=== PATIENT | female | born 1965 | race Caucasian/White ===

== ENCOUNTER 2017-01-05 10:51 | Emergency (ER) | payer BC ==
[2017-01-05] MEDS ORDERED: Ondansetron INJ* 2 MG/ML VIAL IV ONE (13:30)
[2017-01-05] MEDS ORDERED: Ketorolac INJ* 30 MG/ML 1 ML VIAL IV ONE (13:30)
[2017-01-05] MEDS ORDERED: NS 0.9% 1000 ML* 1,000 ML IV ONE (13:30)
[2017-01-05 13:50] LABS: Hematocrit 40 % (35-47); Hemoglobin 13.2 g/dl (12.0-16.0); Mean Corpuscular HGB Conc 33 g/dl (31-36); Mean Corpuscular Hemoglobin 31 pg (27-31); Mean Corpuscular Volume 92 fL (80-97); Mean Platelet Volume 8 um3 (7.4-10.4); Red Blood Count 4.35 10^6/ul (4.0-5.4); Red Cell Distribution Width 14 % (10.5-15); Urine Bilirubin Negative (Negative); Urine Glucose Negative (Negative); Urine Nitrite Negative (Negative); White Blood Count 5.5 10^3/ul (3.5-10.8)
[2017-01-05 14:09] LABS: ALT 13 U/L (7-52); AST 19 U/L (13-39); Albumin 3.7 g/dL (3.2-5.2); Alkaline Phosphatase 57 U/L (34-104); Anion Gap 4 mmol/L (2-11); BUN/Creatinine Ratio 15.3 (8-20); Blood Urea Nitrogen 13 mg/dL (6-24); C Reactive Protein < 1.00 mg/L (< 5.00); CO2 Carbon Dioxide 29 mmol/L (22-32); Calcium 9.1 mg/dL (8.6-10.3); Chloride 106 mmol/L (101-111); Creatine Kinase 78 U/L (10-223); EGFR African American 90.7 (>60); EGFR Non-African American 70.5 (>60); Globulin 2.6 g/dL (2-4); Glucose 87 mg/dL (70-100); Lipase 35 U/L (11.0-82.0); Sodium 139 mmol/L (133-145); Total Protein 6.3 g/dL (6.4-8.9)
[2017-01-05] MEDS ORDERED: HYDROmorphone* 1 MG/ML 1 ML SYR IV ONE (14:43)
[2017-01-05] MEDS ORDERED: Iohexol 300* (CONTRAST) 10 ML SDV IV ONE (14:46)
--- NOTE | 2017-01-05 15:59 | RAD ---
INDICATION: RIGHT abdominal pain. No bowel movement for 3 days. Post cholecystectomy. Post Drea-en-Y gastric bypass. COMPARISON: October 21, 2016 pelvic ultrasound, August 24, 2016 abdomen ultrasound, January 17, [address] July 23, 2016 MRCP. TECHNIQUE: Multidetector CT images were obtained from the lung bases to the ischial tuberosities with 105 mL Omnipaque 300 IV and oral contrast. Multiplanar reformation. REPORT: Unremarkable visualized inferior thorax. Post cholecystectomy. Negative for biliary dilatation. Unremarkable liver. Upper normal diameter of the pancreatic duct. No focal pancreatic lesion or conspicuous stones along the course of the common bile duct. Negative for peripancreatic inflammatory change. Unremarkable spleen. Postsurgical change of Drea-en-Y gastric bypass without suspicious finding. Negative for CT abnormality of the small bowel loops or appendix visualized posterior to the cecum. Mild colonic diverticulosis without findings of diverticulitis. Negative for ascites, free air, or significant hernias. Normal RIGHT adrenal gland. 1.6 x 1.7 cm relative low density LEFT adrenal nodule without gross change compared with the 2009 exam consistent with a benign adrenal adenoma. Unremarkable kidneys with symmetric nephrograms and pyelograms. Unremarkable ureters and urinary bladder. Unremarkable anteverted uterus with IUD in place. Unremarkable RIGHT adnexal region. 2.8 x 3.9 x 3.4 cm mildly denser than water LEFT ovarian lesion corresponding with complex cyst on October 21, 2016 ultrasound with mild interval decrease in size strongly favoring benign etiology. Negative for lymphadenopathy. Normal diameter abdominal aorta and iliac arteries. Physiologic distention of the IVC. Negative for suspicious focal osseous lesions. IMPRESSION: 1. Post cholecystectomy. Negative for biliary dilatation. 2. Postsurgical change of Drea-en-Y gastric bypass without suspicious finding of the alimentary tract. Normal appendix documented. Mild colonic diverticulosis without findings of diverticulitis. Only moderate volume of stool within the colon. 3. Benign LEFT adrenal adenoma. 4. 3.9 cm maximum dimension mildly denser than water LEFT ovarian lesion corresponding with complex cyst on October 21, 2016 ultrasound with mild interval decrease in size strongly favoring benign etiology. Reassessment with ultrasound in approximate 1 months time suggested. 5. Negative for lymphadenopathy.
[2017-01-05] MEDS ORDERED: Magnesium CITRATE* 300 ML BTL PO ONE (16:51)
--- NOTE | 2017-01-05 17:02 | ED ---
Ten Garcia Auryana, scribed for Charlie Cabral MD on 01/05/17 at 1427 . Abdominal Pain/Female - HPI Summary HPI Summary: 51 year old female presents with worsening right sided abdominal pain. She reports that she has had right sided pain for the last 3 months. Initially, the pain is located in the right central abdomen but now is also in the RLQ. The pain is characterized as a constant dull pain but occasionally becomes a "spastic" pain. Currently her pain is a 6/10. She also has nausea, decreased appetite, constipation (if she has a BM, typically small and soft), and chills- reports normal per patient. The patient does not believe that the pain is related to any food intake, medications, or activities - states Rx for Tramadol but has not used pain medication. She denies any fevers, problems with urination , vaginal bleeding/discharge, lower extremity edema or pain. She is not currently on any blood thinners - reports blood thinner previously s/p foot surgery due to DVT. Her last BM was a few days ago - typically has BM twice a day. She recently had a rectal physiology exam which was normal in structure. PMHx is significant for gastric bypass (hematoma s/p surgery), cholecystectomy, Caesarean section x2, tubal ligation, hemorrhagic ovarian cysts (left), and dysmenorrhea (IUD placement). No history of appendectomy, hysterectomy, or bowel obstruction. - History of Current Complaint Chief Complaint: EDAbdPain Stated Complaint: ABD PAIN/NAUSEA Time Seen by Provider: 01/05/17 13:12 Hx Obtained From: Patient Hx Last Menstrual Period: IUD ?: No Onset/Duration: Gradual Onset, Lasting Weeks - for the last 3 months, Still Present Timing: Constant Severity Initially: Moderate Severity Currently: Moderate Pain Intensity: 7 - reprots 6/10 Pain Scale Used: 0-10 Numeric Location: Discrete At: RLQ, Other - right central abdomen Radiates: No Character: Dull, Other: - can become "spastic" Aggravating Factor(s): Nothing Associated Signs and Symptoms: Positive: Constipation, Decreased Appetite, Nausea, Other: - chills - nml per patient Simlar Episode/Dx as:: yes - for the last 3 months Allergies/Adverse Reactions: Allergies Allergy/AdvReac Type Severity Reaction Status Date / Time Heparin Allergy INCREASED Verified 01/05/17 11:53 BLEEDING Morphine Allergy Itching Verified 01/05/17 11:53 Oxycodone [From Percocet] Allergy FACIAL Verified 01/05/17 11:53 ITCHING Penicillins Allergy Hives Verified 01/05/17 11:53 Sulfa Drugs Allergy Hives Verified 01/05/17 11:53 PMH/Surg Hx/FS Hx/Imm Hx Endocrine/Hematology History: Reports: Hx Anemia - FERRITIN LOW Denies: Hx Diabetes Cardiovascular History: Denies: Hx Hypotension, Hx Hypertension, Hx Pacemaker/ICD Respiratory History: Reports: Hx Sleep Apnea GI History: Reports: Hx Gall Bladder Disease, Hx Gastroesophageal Reflux Disease , Other GI Disorders - JOSE N Y GASTRIC BYPASS History: Denies: Hx Renal Disease Musculoskeletal History: Reports: Hx Bursitis - LEFT HIP, Other Musculoskeletal History - HX OF RIGHT BICEP TENDON TEAR Sensory History: Reports: Hx Contacts or Glasses - GLASSES Denies: Hx Hearing Aid Opthamlomology History: Reports: Hx Contacts or Glasses - GLASSES Psychiatric History: Reports: Hx Anxiety, Hx Depression Denies: Hx Panic Disorder - Surgical History Surgery Procedure, Year, and Place: 1988 TONSILLECTOMY, [facility]. 1991 CSECTION, [facility]. 1999 CSECTION WITH BILATERAL TUBAL LIGATION, [facility]. 2008 LAPAROSCOPIC CHOLECYSTECTOMY, [facility] [place]. 2011 RIGHT DISTAL BICEP TENDON REPAIR, [facility] [place]. 2012 RIGHT WRIST DEQUERVAINS TENDON REPAIR, [facility] [place]. 01/2015 LAPAROSCOPIC JOSE EN Y GASTRIC BYPASS, [facility] [place]. 01/2015 DIAGNOSTIC LAPAROSCOPIC EVACUATION ON INTRAPERTIONEAL BLOOD AND DRAIN PLACEMENT, [facility] [place]. 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 Denies: Hx Clostridium Difficile, Hx Hepatitis, Hx Human Immunodeficiency Virus (HIV), Hx Shingles, Hx Tuberculosis, Hx Known/Suspected VRE, Hx Known/ Suspected VRSA, History Other Infectious Disease, Traveled Outside the [place] in Last 30 Days - Family History Known Family History: Positive: Other - lung cancer, breast cancer, liver disease - Social History Occupation: Employed Full-time Alcohol Use: Rare Substance Use Type: Reports: Prescribed Smoking Status (MU): Former Smoker Type: Cigarettes Amount Used/How Often: 1/2 PPD FOR ABOUT 10 YEARS Length of Time of Smoking/Using Tobacco: 10 YEARS Have You Smoked in the Last Year: No Review of Systems Positive: Chills - reports NML . Negative: Fever Eyes: Negative ENT: Negative Cardiovascular: Negative Respiratory: Negative Positive: Abdominal Pain, Nausea, Other - decreased appetite and constipation Genitourinary: Negative Positive: no symptoms reported. Negative: dysuria Musculoskeletal: Negative Negative: Edema Skin: Negative Neurological: Negative Psychological: Normal All Other Systems Reviewed And Are Negative: Yes Physical Exam - Summary Physical Exam Summary: General: well-appearing, mild pain distress Skin: warm, color reflects adequate perfusion, dry Head: normal Eyes: EOMI, ARMIDA ENT: normal Neck: supple, nontender Respiratory: CTA, breath sounds present Cardiovascular: RRR Abdomen: soft, tenderness in the RLQ, right central abdomen, and the epigastric area Bowel: present Musculoskeletal: normal, strength/ROM intact Neurological: normal, sensory/motor intact, A&O x3 Psychological: affect/mood appropriate Triage Information Reviewed: Yes Vital Signs On Initial Exam: Initial Vitals Temp Pulse Resp BP Pulse Ox 97.6 F 57 20 127/85 100 01/05/17 10:56 01/05/17 10:56 01/05/17 10:56 01/05/17 10:56 01/05/17 10:56 Vital Signs Reviewed: Yes - [place] Coma Scale Coma Scale Total: 15 Diagnostics - Vital Signs Vital Signs Temp Pulse Resp BP Pulse Ox 01/05/17 12:30 56 13 104/73 99 01/05/17 12:00 55 17 134/74 99 01/05/17 11:50 54 100 01/05/17 11:49 134/76 01/05/17 11:48 97.6 F 56 18 134/76 100 01/05/17 10:56 97.6 F 57 20 127/85 100 - Laboratory Lab Results: Lab Results 01/05/17 01/05/17 01/05/17 Range/Units 13:35 13:35 13:35 WBC 5.5 (3.5-10.8) 10^3/ul RBC 4.35 (4.0-5.4) 10^6/ul Hgb 13.2 (12.0-16.0) g/dl Hct 40 (35-47) % MCV 92 (80-97) fL MCH 31 (27-31) pg MCHC 33 (31-36) g/dl RDW 14 (10.5-15) % Plt Count 249 (150-450) 10^3/ul MPV 8 (7.4-10.4) um3 Neut % (Auto) 48.4 (38-83) % Lymph % (Auto) 36.8 (25-47) % [place] % (Auto) 8.8 (1-9) % Eos % (Auto) 3.6 (0-6) % Baso % (Auto) 2.4 H (0-2) % Absolute Neuts (auto) 2.7 (1.5-7.7) 10^3/ul Absolute Lymphs (auto) 2.0 (1.0-4.8) 10^3/ul Absolute Monos (auto) 0.5 (0-0.8) 10^3/ul Absolute Eos (auto) 0.2 (0-0.6) 10^3/ul Absolute Basos (auto) 0.1 (0-0.2) 10^3/ul Absolute Nucleated RBC 0 10^3/ul Nucleated RBC % 0 INR (Anticoag Therapy) 0.91 (0.89-1.11) APTT 31.6 (26.0-36.3) seconds Sodium (133-145) mmol/L Potassium (3.5-5.0) mmol/L Chloride (101-111) mmol/L Carbon Dioxide (22-32) mmol/L Anion Gap (2-11) mmol/L BUN (6-24) mg/dL Creatinine (0.51-0.95) mg/dL Est GFR ( Amer) (>60) Est GFR (Non-Af Amer) (>60) BUN/Creatinine Ratio (8-20) Glucose (70-100) mg/dL Lactic Acid (0.5-2.0) mmol/L Calcium (8.6-10.3) mg/dL Total Bilirubin (0.2-1.0) mg/dL AST (13-39) U/L ALT (7-52) U/L Alkaline Phosphatase (34-104) U/L Total Creatine Kinase (10-223) U/L C-Reactive Protein (< 5.00) mg/L Total Protein (6.4-8.9) g/dL Albumin (3.2-5.2) g/dL Globulin (2-4) g/dL Albumin/Globulin Ratio (1-3) Lipase (11.0-82.0) U/L Urine Color Straw Urine Appearance Clear Urine pH 7.0 (5-9) Ur Specific [place] 1.004 L (1.010-1.030) Urine Protein Negative (Negative) Urine Ketones Negative (Negative) Urine Blood Negative (Negative) Urine Nitrate Negative (Negative) Urine Bilirubin Negative (Negative) Urine Urobilinogen Negative (Negative) Ur Leukocyte Esterase Negative (Negative) Urine Glucose Negative (Negative) 01/05/17 01/05/17 Range/Units 13:35 13:35 WBC (3.5-10.8) 10^3/ul RBC (4.0-5.4) 10^6/ul Hgb (12.0-16.0) g/dl Hct (35-47) % MCV (80-97) fL MCH (27-31) pg MCHC (31-36) g/dl RDW (10.5-15) % Plt Count (150-450) 10^3/ul MPV (7.4-10.4) um3 Neut % (Auto) (38-83) % Lymph % (Auto) (25-47) % [place] % (Auto) (1-9) % Eos % (Auto) (0-6) % Baso % (Auto) (0-2) % Absolute Neuts (auto) (1.5-7.7) 10^3/ul Absolute Lymphs (auto) (1.0-4.8) 10^3/ul Absolute Monos (auto) (0-0.8) 10^3/ul Absolute Eos (auto) (0-0.6) 10^3/ul Absolute Basos (auto) (0-0.2) 10^3/ul Absolute Nucleated RBC 10^3/ul Nucleated RBC % INR (Anticoag Therapy) (0.89-1.11) APTT (26.0-36.3) seconds Sodium 139 (133-145) mmol/L Potassium 4.0 (3.5-5.0) mmol/L Chloride 106 (101-111) mmol/L Carbon Dioxide 29 (22-32) mmol/L Anion Gap 4 (2-11) mmol/L BUN 13 (6-24) mg/dL Creatinine 0.85 (0.51-0.95) mg/dL Est GFR ( Amer) 90.7 (>60) Est GFR (Non-Af Amer) 70.5 (>60) BUN/Creatinine Ratio 15.3 (8-20) Glucose 87 (70-100) mg/dL Lactic Acid 0.5 (0.5-2.0) mmol/L Calcium 9.1 (8.6-10.3) mg/dL Total Bilirubin 0.50 (0.2-1.0) mg/dL AST 19 (13-39) U/L ALT 13 (7-52) U/L Alkaline Phosphatase 57 (34-104) U/L Total Creatine Kinase 78 (10-223) U/L C-Reactive Protein < 1.00 (< 5.00) mg/L Total Protein 6.3 L (6.4-8.9) g/dL Albumin 3.7 (3.2-5.2) g/dL Globulin 2.6 (2-4) g/dL Albumin/Globulin Ratio 1.4 (1-3) Lipase 35 (11.0-82.0) U/L Urine Color Urine Appearance Urine pH (5-9) Ur Specific [place] (1.010-1.030) Urine Protein (Negative) Urine Ketones (Negative) Urine Blood (Negative) Urine Nitrate (Negative) Urine Bilirubin (Negative) Urine Urobilinogen (Negative) Ur Leukocyte Esterase (Negative) Urine Glucose (Negative) Result Diagrams: 01/05/17 13:35 01/05/17 13:35 Lab Statement: Any lab studies that have been ordered have been reviewed, and results considered in the medical decision making process. - CT ABD/PEL CT Interpretation: Positive (See Comments) - IMPRESSION: 1. Post cholecystectomy. Negative for biliary dilatation. 2. Postsurgical change of Jose -en-Y gastric bypass without suspicious finding of the alimentary tract. Normal appendix documented. Mild colonic diverticulosis without findings of diverticulitis. Only moderate volume of stool within the colon. 3. Benign LEFT adrenal adenoma. 4. 3.9 cm maximum dimension mildly denser than water LEFT ovarian lesion corresponding with complex cyst on October 21, 2016 ultrasound with mild interval decrease in size strongly favoring benign etiology. Reassessment with ultrasound in approximate 1 months time suggested. 5. Negative for lymphadenopathy. CT Interpretation Completed By: Radiologist Abdominal Pain Fem Course/Dx - Course Course Of Treatment: NO CRITICAL CARE TIME. DISCUSSED RESULTS WITH PATIENT. DISCUSSED ADMISSION FOR PAIN CONTROL VERSES OUT PATIENT F/U. PATIENT, AT THIS TIME, PREFERS OUT PATIENT F/U. DISCHARGE HOME WITH [facility]. RETURN IF WORSE OR NO IMPROVEMENT. - Diagnoses Provider Diagnoses: Abdominal pain, Constipation Discharge - Discharge Plan Condition: Stable Disposition: HOME Patient Education Materials: Constipation (ED), Abdominal Pain (ED) Referrals: Neris Clemente NP [Primary Care Provider] - Additional Instructions: FOLLOW UP WITH YOUR DOCTOR. RETURN TO THE EMERGENCY DEPARTMENT FOR ANY WORSENING OF YOUR CONDITION; PAIN, FEVER, VOMITING, YOU FEEL ILL OR QUESTIONS OR CONCERNS. The documentation as recorded by the Ten chandler Auryana accurately reflects the service I personally performed and the decisions made by me, Charlie Cabral MD.
[2017-01-05 17:13] VITALS: BP 124/72
== END 2017-01-05 17:17 | disposition home or self-care (01) ==
LOC: ED 10:51
DX: R10.31 Right lower quadrant pain (principal); K59.00 Constipation, unspecified; Z88.5 Allergy status to narcotic agent; Z88.2 Allergy status to sulfonamides; Z88.0 Allergy status to penicillin; G47.30 Sleep apnea, unspecified; Z87.891 Personal history of nicotine dependence
CPT/HCPCS: 36415; 74177; 80053; 81003; 82550; 83605; 83690; 85025; 85610; 85730; 86140; 96360; 96374; 96375; 99283; A9270-GY; J1170; J1885; J2405; Q9967

== ENCOUNTER 2018-11-21 08:55 | Emergency (ER) | payer BC ==
[2018-11-21] MEDS ORDERED: HYDROcodone/ACETAMIN 5-325 MG* 1 TAB PO ONE (09:43)
[2018-11-21] MEDS ORDERED: Ketorolac INJ* 60 MG/2 ML VIAL IM ONE (09:45)
[2018-11-21] MEDS ORDERED: predniSONE TAB* 50 MG PO SCH (10:00)
--- NOTE | 2018-11-21 10:27 | ED ---
Lower Extremity - HPI Summary HPI Summary: Patient is a 52yo F presenting to the ED with pain to the area of shingles to the R lower extremity of the R upper leg/thigh. Patient endoress 10/10 pain and is currently on gabapentin and tramadol through her PCP. She is here for uncontrolled pain. Denies taking any steroids. She states she is having pain to this area only and denies other symptoms. She is tearful on exam. - History of Current Complaint Chief Complaint: EDRashSkinAbscess Stated Complaint: SHINGLE ALOT OF PAIN PER PT Time Seen by Provider: 11/21/18 09:01 Hx Obtained From: Patient Hx Last Menstrual Period: IUD Onset of Pain: Hours Onset/Duration: Hours Severity Initially: Severe Severity Currently: Severe Pain Intensity: 10 Timing: Constant Location: Is Discrete @ - right upper leg - r lateral side Character Of Pain: Aching Associated Signs And Symptoms: Negative: Swelling, Redness, Bruising, Fever, Weakness Aggravating Factor(s): Ambulation Able to Bear Weight: No - Risk Factors Gout Risk Factors: Negative DVT Risk Factors: Negative Septic Arthritis Risk Factor: Negative - Allergies/Home Medications Allergies/Adverse Reactions: Allergies Allergy/AdvReac Type Severity Reaction Status Date / Time heparin Allergy SEVERE Verified 11/21/18 10:24 MENSTRAL BLEEDING hops Allergy SOB/STUFFIN Verified 11/21/18 08:58 ESS oxycodone [From Percocet] Allergy FACIAL Verified 11/21/18 08:58 ITCHING Penicillins Allergy Hives Verified 11/21/18 08:58 rivaroxaban [From Xarelto] Allergy SEVERE Verified 11/21/18 08:58 UTERINE BLEEDING Sulfa (Sulfonamide Allergy Hives Verified 11/21/18 08:58 Antibiotics) morphine AdvReac Itching Verified 11/21/18 08:58 Home Medications: Home Medications Gabapentin 300 mg PO DAILY 11/21/18 [History Confirmed 11/21/18] Gabapentin CAP(*) [Neurontin 100 mg CAP(*)] 100 mg PO DAILY 11/21/18 [History Confirmed 11/21/18] Multivitamin [Once Daily] 1 tab PO DAILY 11/21/18 [History Confirmed 11/21/18] Valacyclovir HCl [Valacyclovir] 500 mg PO TID 11/21/18 [History Confirmed ] PMH/Surg Hx/FS Hx/Imm Hx Previously Healthy: Yes Endocrine/Hematology History: Reports: Hx Anemia - FERRITIN LOW Denies: Hx Diabetes Cardiovascular History: Denies: Hx Hypotension, Hx Hypertension, Hx Pacemaker/ICD Respiratory History: Reports: Hx Sleep Apnea GI History: Reports: Hx Gall Bladder Disease, Hx Gastroesophageal Reflux Disease , Other GI Disorders - JOSE N Y GASTRIC BYPASS History: Denies: Hx Renal Disease Musculoskeletal History: Reports: Hx Bursitis - LEFT HIP, Other Musculoskeletal History - HX OF RIGHT BICEP TENDON TEAR; left rotator cuff tear Denies: Hx Rheumatoid Arthritis, Hx Osteoporosis Sensory History: Reports: Hx Contacts or Glasses - GLASSES Denies: Hx Hearing Aid Opthamlomology History: Reports: Hx Contacts or Glasses - GLASSES Psychiatric History: Reports: Hx Anxiety, Hx Depression Denies: Hx Panic Disorder - Cancer History Hx Chemotherapy: No Hx Radiation Therapy: No - Surgical History Surgery Procedure, Year, and Place: 1987 TONSILLECTOMY, [facility]. 1991 CSECTION, [facility]. 1999 CSECTION WITH BILATERAL TUBAL LIGATION, [facility]. 2008 LAPAROSCOPIC CHOLECYSTECTOMY, [facility] [place]. 2011 RIGHT DISTAL BICEP TENDON REPAIR, [facility] [place]. 2012 RIGHT WRIST DEQUERVAINS TENDON REPAIR, [facility] [place]. 01/2015 LAPAROSCOPIC JOSE EN Y GASTRIC BYPASS, [facility] [place]. 01/2015 DIAGNOSTIC LAPAROSCOPIC EVACUATION ON INTRAPERTIONEAL BLOOD AND DRAIN PLACEMENT, [facility] [place]. 10/2015 LEFT FOOT 2ND-4TH-5TH TOE ARTHROPLASTY. April 2017 - left shoulder rotator cuff repair. 06/22/18 - Lt SHOULDER - SUPERASPINATUS/INFRASPINATUS REPAIR-DECOMPRESSION Hx Anesthesia Reactions: No - Immunization History Hx Pertussis Vaccination: No Immunizations Up to Date: Yes Infectious Disease History: No Infectious Disease History: Reports: Hx of Known/Suspected MRSA - pos but not active Denies: Hx Clostridium Difficile, Hx Hepatitis, Hx Human Immunodeficiency Virus (HIV), Hx Shingles, Hx Tuberculosis, Hx Known/Suspected VRE, Hx Known/ Suspected VRSA, History Other Infectious Disease, Traveled Outside the [place] in Last 30 Days - Family History Known Family History: Positive: Other - lung cancer, breast cancer, liver disease - Social History Occupation: Employed Full-time Lives: With Family Alcohol Use: Occasionally Hx Substance Use: Yes Substance Use Type: Reports: Prescribed Smoking Status (MU): Former Smoker Type: Cigarettes Amount Used/How Often: 1/2 PPD FOR ABOUT 10 YEARS Length of Time of Smoking/Using Tobacco: 10 YEARS Have You Smoked in the Last Year: No Review of Systems Constitutional: Negative Negative: Fever, Chills, Fatigue, Skin Diaphoresis Negative: Palpitations, Chest Pain Negative: Shortness Of Breath, Cough Negative: Abdominal Pain, Vomiting, Diarrhea, Nausea Genitourinary: Negative Positive: no symptoms reported, see HPI Positive: Myalgia - right lateral side - R leg vesicles and pain Positive: Other - vesicles to the R lateral thigh Neurological: Negative All Other Systems Reviewed And Are Negative: Yes Physical Exam Triage Information Reviewed: Yes Vital Signs On Initial Exam: Initial Vitals Temp Pulse Resp BP Pulse Ox 98.9 F 85 16 165/103 98 11/21/18 08:56 11/21/18 08:56 11/21/18 08:56 11/21/18 08:56 11/21/18 08:56 Vital Signs Reviewed: Yes Appearance: Positive: Well-Appearing, Well-Nourished Skin: Positive: Warm, Skin Color Reflects Adequate Perfusion Eyes: Positive: EOMI, ARMIDA, Conjunctiva Clear Neck: Positive: Supple, No Lymphadenopathy Respiratory/Lung Sounds: Positive: Clear to Auscultation Cardiovascular: Positive: RRR, Pulses are Symmetrical in both Upper and Lower Extremities Musculoskeletal: Positive: Strength/ROM Intact Neurological: Positive: Sensory/Motor Intact, Alert, Oriented to Person Place, Time, Speech Normal Psychiatric: Positive: Other - patient is upset and tearful AVPU Assessment: Alert Diagnostics - Vital Signs Vital Signs Temp Pulse Resp BP Pulse Ox 11/21/18 08:56 98.9 F 85 16 165/103 98 - Laboratory Lab Statement: Any lab studies that have been ordered have been reviewed, and results considered in the medical decision making process. Lower Extremity Course/Dx - Course Course Of Treatment: Patient presents with R lower extremity pain. Currently on 400mg gabapentin. Patient is tearful on exam and endorses 10/10 pain. Patient states she is a patient of the pain clinic, however is not on any pain medication for this currenty. Stated to patient soon after arrival into the patients room, medications would be ordered. On re-evaluation, patient states she felt dismissed and I was not addressing her pain. I stated to the patient I wanted to/needed to leave the room in order to order her the pain control she needed. I apologized for leaving the room to order her pain medications and again stated I did not mean to dismiss her valid complaint of pain, and instead I had indeded to address it quickly as I was unable to obtain a good history since the patient was in obvious diseress. Toradol, vicodin and prednisone was ordered immediately after I left the room. Patient and continue to be angered at me leaving the room to order the pain control. After continuing to apologize and asked if there was anything else I could do to help her/help her pain, I discussed the situation with Zaki Dumont who requested the support of Debbie Heredia. Debbie Heredia to speakin with patient. Patient is being seen by pain clinic, [facility]. For this reason, I am unable to prescribe medications without speaking to the clinic first as in order to not have patient break contract. This was also explained to the patient and she voices understanding. Discussed with patient and , will prescribe pain control and prednisone for her symptoms. - Diagnoses Differential Diagnosis/HQI/PQRI: Positive: Other - pain control Provider Diagnoses: Shingles Discharge - Sign-Out/Discharge Documenting (check all that apply): Patient Departure Patient Received Moderate/Deep Sedation with Procedure: No - Discharge Plan Condition: Stable Disposition: HOME Prescriptions: HYDROcodone/ACETAMIN 5-325 MG* [[place] 5-325 TAB*] 2 tab PO Q8H PRN #30 tab MDD 6 PRN Reason: Pain predniSONE TAB* [Deltasone TAB*] 50 mg PO DAILY #5 tab Patient Education Materials: Sherry (ED) Referrals: Neris Clemente NP [Primary Care Provider] - Additional Instructions: Prednisone once daily x 5 days Hydrocodone/acetaminophen 1-2 tabs every 8 hours for pain Do not exceed 6 tabs per day Please follow up with your PCP as needed - Billing Disposition and Condition Condition: STABLE Disposition: Home
[2018-11-21 11:22] VITALS: BP 151/84
== END 2018-11-21 11:21 | disposition home or self-care (01) ==
LOC: ED 08:55
DX: B02.9 Zoster without complications (principal); Z88.5 Allergy status to narcotic agent; Z88.0 Allergy status to penicillin; Z88.2 Allergy status to sulfonamides; Z88.8 Allergy status to other drugs, medicaments and biological substances; Z87.891 Personal history of nicotine dependence
CPT/HCPCS: 96372; 99283; J1885; J7512

== ENCOUNTER 2019-08-10 05:31 | Inpatient (IN) | payer BC ==
--- NOTE | 2019-07-30 11:42 | HP ---
HISTORY AND PHYSICAL: DATE OF ADMISSION/SURGERY: 08/10/19 DATE OF OFFICE VISIT: 07/25/19 SURGEON: Rina Girard MD * (DICTATED BY RAFIA BETH) PROCEDURE: Left total hip arthroplasty. CHIEF COMPLAINT: Left hip pain. HISTORY OF PRESENT ILLNESS: Ms. Rossi is a 53-year-old female with end-stage osteoarthritis of the left hip. She has failed conservative treatment and elected to proceed with a left total hip arthroplasty. PAST MEDICAL HISTORY: History of a DVT, GERD, anemia, depression, and anxiety. PAST SURGICAL HISTORY: Left foot surgery, left shoulder surgery x2, tonsillectomy, adenoidectomy, x2, gastric bypass, cholecystectomy, tubal ligation, right de Quervain's release, and right biceps tendon repair. CURRENT MEDICATIONS: 1. Multivitamin. 2. Vitamin D3. 3. Trazodone. 4. Lajas. 5. Lyrica. 6. Prozac 40 mg daily. 7. Omeprazole 40 mg daily. 8. Linzess 290 mcg daily. 9. Vitamin B12 injections every month. ALLERGIES: To SULFA, PENICILLIN, and PERCOCET. PERCOCET causes itching. HEPARIN, HOPS, and XARELTO causing severe vaginal bleeding. FAMILY HISTORY: Diabetes, cancer and hypertension. SOCIAL HISTORY: She is a 53-year-old female. She lives with her . She does not smoke. REVIEW OF SYSTEMS: A complete 14-point review of systems was reviewed with the patient. It was positive for GERD and history of a DVT. She denies history of hepatitis, HIV, or anesthesia problems. PHYSICAL EXAMINATION GENERAL: She is well developed, well nourished, in no acute distress. VITAL SIGNS: She stands 63 inches tall, weighs 186 pounds. Her blood pressure is 132/84, heart rate is 66. HEENT: Normocephalic, atraumatic. NECK: Supple. No palpable lymph nodes. PULMONARY: The lungs are clear to auscultation bilaterally. CARDIO: Regular rate and rhythm. Strong S1, S2. ABDOMEN: Soft, nontender, nondistended. NEUROLOGICAL: She is alert and oriented x3. MUSCULOSKELETAL: Left lower extremity: The skin is intact. There are no open wounds or abrasions. She walks with an antalgic-type gait favoring the left hip. She has decreased internal and external rotation of the left hip. She is able to dorsiflex and plantarflex, has a 2+ dorsalis pedis pulse and intact sensation. ASSESSMENT AND PLAN: Ms. Rossi is a 53-year-old female with end-stage osteoarthritis of the left hip. She has failed conservative treatment and elected to proceed with a left total hip arthroplasty. The surgery is scheduled for 08/10/[address] Girard discussed the risks and benefits of the surgery at today's visit and all of her questions were answered. She will follow up with Dr. Girard 2 weeks after the surgery. No TXA will be used in this patient because of her history of a DVT. RAFIA BETH [id number]/[facility] #: [id number] MTDD
[~2019-08-10 05:31] MED LIST: Buffered Lidocaine 1% SYRIN* 1 ML/SYRINGE INTRADERM ONE
[2019-08-10] MEDS ORDERED: Ondansetron ODT TAB* 4 MG ONE (05:50)
[2019-08-10] MEDS ORDERED: Dexamethasone TAB* 4 MG ONE (05:50)
[2019-08-10] MEDS ORDERED: Famotidine IV* 10 MG/ML 2 ML (20 mg) ONE (05:50)
[2019-08-10] MEDS ORDERED: Clindamycin 900 MG/D5W BAG(*) 900 MG/50 ML BAG IVPB ONE (05:50)
[2019-08-10] MEDS ORDERED: Naloxone* 0.4 MG/ML 1 ML VIAL IV PRN (05:53)
[2019-08-10] MEDS ORDERED: oxyCODONE TAB* 5 MG TAB PO PRN ×2 (05:53→09:52)
[2019-08-10] MEDS ORDERED: PROCHLORPERAZINE INJ 5 MG/ML 2 ML VIAL IV PRN (05:53)
[2019-08-10] MEDS ORDERED: DiMENhydriNATE IV* 50 MG/ML VIAL IV PUSH PRN (05:53)
[2019-08-10] MEDS ORDERED: fentaNYL* 50 MCG/ML 2 ML VIAL (100 MCG VIAL) IV PRN (05:53)
[2019-08-10] MEDS ORDERED: HYDROmorphone INJ1* 1 MG/ML SYRINGE IV PRN (05:53)
[2019-08-10] MEDS ORDERED: Dexamethasone TAB* 4 MG PO ONE (06:00)
[2019-08-10] MEDS ORDERED: Lactated Ringers 1000 ML Bag* 1,000 ML IV SCH (06:00)
[2019-08-10] MEDS ORDERED: Famotidine IV* 10 MG/ML 2 ML (20 mg) IV ONE (06:00)
[2019-08-10] MEDS ORDERED: Ondansetron ODT TAB* 4 MG PO ONE (06:00)
[2019-08-10] MEDS ORDERED: ROPIVACAINE 5 MG/ML 30 ML BTL (0.5%) ONE (06:57)
[2019-08-10] MEDS ORDERED: fentaNYL* 50 MCG/ML 2 ML VIAL (100 MCG VIAL) ONE (07:27)
[2019-08-10] MEDS ORDERED: Midazolam* 1 MG/ML 10 ML VIAL (10 MG) ONE (07:27)
[2019-08-10] MEDS ORDERED: Propofol* 500 MG/50 ML BTL ONE (08:02)
[2019-08-10] MEDS ORDERED: Acetaminophen IV 1GM/100ML * 100 ML ONE (08:02)
[2019-08-10] MEDS ORDERED: Phenylephrine 40 MCG/ML SYRINGE ONE (08:02)
[2019-08-10] MEDS ORDERED: Lidocaine 2% PF * 5 ML VIAL ONE (08:02)
[2019-08-10] MEDS ORDERED: Phenylephrine 10 MG/ML VIAL* 1 ML VIAL ONE (08:02)
[2019-08-10] MEDS ORDERED: EPHEDrine (Pressors)* 50 MG/ML VIAL ONE (08:03)
[2019-08-10] MEDS ORDERED: Ondansetron ODT TAB* 4 MG PO PRN (09:52)
[2019-08-10] MEDS ORDERED: Polyethylene Glycol 3350* 17 GM PACKET PO PRN (09:52)
[2019-08-10] MEDS ORDERED: diPHENhydraMINE IV* 50 MG/ML 1 ml VIAL (BENADRYL) IV PRN (09:52)
[2019-08-10] MEDS ORDERED: Magnesium Hydroxide LIQ* 30 ML UDC PO PRN (09:52)
[2019-08-10] MEDS ORDERED: diPHENhydraMINE PO* 25 MG PO PRN (09:52)
[2019-08-10] MEDS ORDERED: Ondansetron INJ* 2 MG/ML VIAL IV PRN (09:52)
[2019-08-10] MEDS ORDERED: traZODone TAB* 50 MG TAB PO PRN (09:52)
[2019-08-10] MEDS ORDERED: HYDROcodone/ACETAMIN 5-325 MG* 1 TAB PO PRN (10:02)
[2019-08-10] MEDS ORDERED: Hydrocodone/Acetamin 10/325 MG 1 TAB PO PRN (10:04)
[2019-08-10] MEDS ORDERED: oxyCODONE TAB* 5 MG TAB ONE (10:48)
[2019-08-10] MEDS ORDERED: HYDROmorphone INJ1* 1 MG/ML SYRINGE ONE (10:48)
[2019-08-10] MEDS: Lactated Ringers 1000 ML Bag* 1,000 ML IV SCH ×2 (11:18→21:23)
--- NOTE | 2019-08-10 11:29 | OP ---
Operative Report - Blank - Operative Report Date of Operation: 08/10/19 Note: CHRISTIANO GOODWIN 1965 Date Of Surgery: 08/10/19 Rina Girard MD Communications Professional: did help throughout the procedure with preparation of the hip, wound retraction, manipulation of the hip, and wound closure. Anesthesiologist: Dr. Argueta Anesthesia Type: Spinal Preoperative Diagnosis: Left severe degenerative osteoarthritis of the hip Postoperative Diagnosis: As above Procedure Performed: Left Total Hip Arthroplasty Complications: None Specimen: Femoral head and acetabular reamings sent to pathology. Hardware used: This is uncemented [place] total hip arthroplasty hardware for the femur a accolade II size 3 with 127 neck angle femoral component, for the acetabulum a size 48 D trident II tritanium cluster hole shell, one 15mm screw, for the insert a size 32D trident X3 polyethylene insert, and for the femoral head a size 32 + - ceramic biolox V40 femoral head. Brief history/Indication: CHRISTIANO GOODWIN was known in clinic and had a history of severe left hip pain. She failed conservative treatment with anti- inflammatories, pain pills, intra-articular injections and physical therapy. She elected to undergo left total hip arthroplasty due to continued pain and decreased quality of life. Radiographs showed severe end stage osteoarthritis of the hip with bone on bone contact. Informed consent was obtained from the patient. She understood the risks of surgery included but were not limited to: bleeding, infection, damage to nearby structures, intraoperative fracture, nerve palsy, failure of the hardware, early loosening, stiffness or loss of motion, dislocation, leg length discrepancy, anesthesia complications, stroke, heart attack, blood clot and . She wished to proceed. Intra-Operative findings: Intraoperatively the patient was noted to have severe loss of cartilage of the acetabulum and femoral head. Description of the Procedure: CHRISTIANO GOODWIN was identified in the preanesthesia unit. Her left hip was marked as the correct operative side. Informed consent was signed and placed in the chart. The patient was taken to the operating room and placed under anesthesia without complication. A patel catheter was placed. The patient was placed on the peg board with all bony prominences well padded. The left lower extremity was prepped and draped in the usual sterile fashion. Preoperative time -out was made to correctly identify the patient, side and site. Appropriate intraoperative antibiotics were given within one hour of incision. A standard posterior incision was made and carried sharply down to the lateral fascia. A new 10 blade was used to make an incision in the fascia in line with the skin incision. A charnley retractor was placed. The piriformis and conjoined tendons were identified and elevated off the posterolateral femur using electrocautery. These were tagged with number 5 Ethibond. Next electrocautery was used to make a posterolateral capsular flap and this was tagged with number 5 Ethibonds. The hip was carefully dislocated. Lesser trochanter to the center of the femoral head was measured at 58 mm. The oscillating saw was used to make the femoral neck cut. The femoral head was carefully removed. The femur was retracted anteriorly and the acetabular retractors were placed. Long-handled knife was used to sharply remove any remaining labrum from the acetabular rim. The acetabulum was sequentially reamed up to a size 48. A bleeding subchondral bone bed was obtained. A trial liner was placed and had excellent fit and stability. A 48D cup with one screw was placed and had excellent stability with appropriate anteversion and abduction angle. A size 32D liner was impacted into the acetabular shell. The liner was checked for stability and was stable. Next attention was turned to preparation of the femoral canal. A canal finder was used to enter the proximal femur. The femoral canal was sequentially broached up to a size 3 femoral broach trial. A trial neck and 32 + 0 head trial femoral head was chosen. Lesser trochanter to center of the femoral head measurement was satisfactory. The hip was reduced and taken through a range of motion. The hip was stable in all positions with good soft tissue tension and appropriate leg lengths. The hip was dislocated and all trials were removed. The final implant chosen was a accolade II size 3. This stem was impacted into the femoral canal without difficulty. The stem was stable with appropriate anteversion. The femoral head chosen was a 32 + 0 ceramic head. The head was impacted onto the femoral neck without difficulty. The final lesser trochanter to center of the femoral head measurement was satisfactory. The hip was reduced and taken through a range of motion. The hip was stable in all positions with good soft tissue tension and appropriate leg lengths. The hip was copiously irrigated with sterile saline. The previously tagged capsule and tendons were repaired to the posterolateral femur through two trochanteric drill holes. The lateral fascia layer was closed using number 1 vicryls. The rest of the incision was closed in a layered fashion using 0 and 2-0 vicryls. The skin was closed using 3-0 monocryl suture and Dermabond. Sterile adaptic, 4x4s and paper tape was used to cover the incision. The patients anesthesia was reversed without difficulty. She was taken to the PACU in stable condition. Intended weight-bearing will be as tolerated with posterior hip precautions.
[2019-08-10] MEDS: traMADol TAB* 50 MG PO PRN ×2 (12:11→18:04)
[2019-08-10] MEDS: Morphine INJ* 2 MG/ML 1 ML SYRINGE (TWO MG - NEW SYRINGE VERSION) IV PRN ×2 (12:11→21:21)
[2019-08-10] MEDS: HYDROcodone/ACETAMIN 5-325 MG* 1 TAB PO PRN ×3 (13:53→23:32)
[2019-08-10] MEDS: Clindamycin 600 MG/D5W BAG(*) 600 MG/50 ML BAG IV SCH ×2 (16:01→23:31)
[2019-08-10] MEDS: Cyclobenzaprine TAB* 10 MG PO PRN (16:05)
[2019-08-10] MEDS: Acetaminophen TAB* 325 MG PO SCH ×2 (18:06→23:45)
[2019-08-10] MEDS: Docusate CAP* 100 MG PO SCH (21:22)
[2019-08-10] MEDS: Magnesium Hydroxide LIQ* 30 ML UDC PO SCH (21:22)
[2019-08-10] MEDS: Pregabalin 25 mg CAP (*) PO SCH (21:22)
[2019-08-11] MEDS: traMADol TAB* 50 MG PO PRN ×2 (03:28→09:32)
[2019-08-11 05:05] LABS: Hematocrit 30 % (35-47); Hemoglobin 10.3 g/dL (12.0-16.0); Platelet Count 225 10^3/uL (150-450)
[2019-08-11 05:21] LABS: Calcium 9.1 mg/dL (8.6-10.3); EGFR African American 97.8 (>60); EGFR Non-African American 80.8 (>60); Potassium 4.1 mmol/L (3.5-5.0)
[2019-08-11] MEDS: HYDROcodone/ACETAMIN 5-325 MG* 1 TAB PO PRN ×5 (06:21→23:16)
[2019-08-11] MEDS: Docusate CAP* 100 MG PO SCH ×2 (07:59→21:45)
[2019-08-11] MEDS: Vitamin THERAPEUTIC TAB PO SCH (07:59)
[2019-08-11] MEDS: Apixaban* 2.5 MG TAB PO SCH ×2 (08:00→21:45)
[2019-08-11] MEDS: Pregabalin 25 mg CAP (*) PO SCH ×2 (08:00→21:45)
[2019-08-11] MEDS: FLUoxetine CAP* 20 MG PO SCH (08:01)
[2019-08-11] MEDS: Pantoprazole TAB * 40 MG TAB PO SCH (08:01)
[2019-08-11] MEDS: Clindamycin 600 MG/D5W BAG(*) 600 MG/50 ML BAG IV SCH (08:02)
[2019-08-11] MEDS: Magnesium Hydroxide LIQ* 30 ML UDC PO SCH ×2 (08:03→21:46)
[2019-08-11] MEDS: Acetaminophen TAB* 325 MG PO SCH ×2 (08:26→16:51)
[2019-08-11] MEDS ORDERED: PTO: Linaclotide (NF) 290 MCG CAP PO SCH (09:00)
[2019-08-11] MEDS ORDERED: NS 0.9% 1000 ML** 1,000 ML IV ONE (09:54)
--- NOTE | 2019-08-11 10:11 | PN ---
Progress Note - Progress Note Date of Service: 08/11/19 SOAP: Subjective: Pt. is alert, nad, reports minimal pain l hip Objective: Vital Signs: Temp Pulse Resp BP Pulse Ox 98.7 F 76 18 102/59 97 08/11/19 07:45 08/11/19 07:45 08/11/19 09:32 08/11/19 07:45 08/11/19 07:45 Laboratory Results - last 24 hr 08/11/19 08/11/19 08/11/19 04:55 04:55 09:52 Hgb 10.3 L Hct 30 L Plt Count 225 MPV 7.0 L Sodium 139 Potassium 4.1 Chloride 105 Carbon Dioxide 30 Anion Gap 4 BUN 12 Creatinine 0.75 Est GFR ( Amer) 97.8 Est GFR (Non-Af Amer) 80.8 BUN/Creatinine Ratio 16.0 Glucose 124 H POC Glucose (mg/dL) 97 Calcium 9.1 LLE - dressing changed, inc c/d/i with hematoma, distally nvi. Assessment: 53 yo F pod 1 s/p LTHA Plan: Pt. doing well with PT and avss. During dressing change today she had a vasovagal event with 3sec loc. She did go down to her knees with her and I catching her from a full fall. CAT called immediately. She was hypotensive/tachy with normal ekg. She is doing well now with IVF and stable vitals, alert and oriented. No sob/cp or other symptoms. Plan to monitor today on telemetry and no discharge today. will order L hip xrays to ensure no dislocation or fracture. appreciate CAT team assistance and care.
[2019-08-11] MEDS ORDERED: traMADol TAB* 50 MG PO PRN (10:12)
[2019-08-11 10:28] LABS: ABS Lymphocytes 1.6 10^3/ul (1.0-4.8); ABS Monocytes 0.9 10^3/ul (0-0.8); ABS Neutrophils 6.2 10^3/ul (1.5-7.7); Eosinophil % 0.4 %; Hematocrit 31 % (35-47); Hemoglobin 10.7 g/dL (12.0-16.0); Lymphocyte % 18.3 %; Mean Corpuscular HGB Conc 35 g/dL (31-36); Mean Corpuscular Hemoglobin 32 pg (27-31); Mean Corpuscular Volume 91 fL (80-97); Mean Platelet Volume 7.5 fL (7.4-10.4); Nucleated Red Blood Cells % 0.1; Platelet Count 237 10^3/uL (150-450); Red Blood Count 3.42 10^6 /uL (3.70-4.87); Red Cell Distribution Width 14 % (10-15); White Blood Count 8.9 10^3/uL (3.5-10.8)
[2019-08-11 10:41] LABS: BUN/Creatinine Ratio 15.4 (8-20); EGFR African American 93.5 (>60); EGFR Non-African American 77.3 (>60); Magnesium 1.6 mg/dL (1.9-2.7); Phosphorus 2.5 mg/dL (2.5-5.0); Potassium 3.6 mmol/L (3.5-5.0)
[2019-08-11] MEDS ORDERED: Magnesium Sulfate IV* 3 GM in NS 0.9% 100 ML* 100 ML IVPB ONE (13:00)
--- NOTE | 2019-08-11 13:32 | CONS ---
HOSPITAL MEDICINE CONSULTATION REPORT: DATE OF CONSULT: 08/11/19 PROVIDER: Aashish Anne NP ATTENDING PHYSICIAN: Dr. Girard. CONSULTING PHYSICIAN: Dr. Serge Daniels (dictated by Aashish Anne NP). REASON FOR CONSULT: Syncopal episode. HISTORY OF PRESENT ILLNESS: Ms. Rossi is a 53-year-old female patient status post left hip arthroplasty, with past medical history of DVT, GERD, anemia, depression, and anxiety. Ms. Rossi presented to the hospital for planned left hip arthroplasty after failed conservative treatments outpatient for significant osteoarthritis of the left hip. Following successful left hip arthroplasty, the patient was out of bed with Dr. Girard and her at bedside, experienced a vasovagal event with 3-second loss of consciousness. The patient did fall to her knees; however, the patient was lowered to the ground by Dr. Girard and her spouse. The patient was placed back into bed, found to be hypotensive and tachycardic with normal EKG. Presently, the patient is without complaints other than left hip pain, 11/20. The patient denies any chest pain, shortness of breath, or dizziness at this point in time. Does report that she has a significant history of anemia and she receives Hemaferrin infusions every 6 months to a year. The patient's plan for discharge today has changed. She will be monitored on telemetry for 24 hours and reassessment for discharge tomorrow. The patient reports that while standing for a dressing change she did experience dizziness, but was unable to report to Dr. Girard that she was feeling dizzy and next thing she remembered was multiple people standing at her bedside. PAST MEDICAL HISTORY: 1. DVT. 2. GERD. 3. Anemia. 4. Depression. 5. Anxiety. 6. 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 PAST SURGICAL HISTORY: 1. Left foot surgery. 2. Left shoulder surgery x2. 3. Tonsillectomy. 4. Adenoidectomy. 5. x2. 6. Gastric bypass. 7. Cholecystectomy. 8. Tubal ligation. 9. Right de Quervain's release. 10. Right biceps tendon repair. HOME MEDICATIONS: 1. Trazodone tab 50 mg by mouth at bedtime p.r.n. 2. Pregabalin 75 mg p.o. b.i.d. 3. Omeprazole 40 mg p.o. every morning. 4. Multivitamin 1 tab p.o. q.a.m. 5. Linaclotide (Linzess) 290 mcg p.o. q.a.m. 6. Hydrocodone/acetaminophen 10/325 tablet 1 tab p.o. q.8 hours p.r.n., MDD 3. 7. Prozac 40 mg p.o. q.a.m. 8. Vitamin B12 injections 1000 mcg IM monthly. 9. Cholecalciferol 5000 units p.o. q.a.m. ALLERGIES: HEPARIN, severe menstrual bleeding; HOPS, shortness of breath and stuffiness; OXYCODONE, facial itching; PENICILLINS, hives; RIVAROXABAN, severe uterine bleeding; SULFA, HIVES. FAMILY HISTORY: Diabetes, cancer, hypertension. SOCIAL HISTORY: A 53-year-old female, lives with her . Does not smoke. REVIEW OF SYSTEMS: General: No fevers, chills, or unintended weight loss. Cardiac: No chest pain or edema in extremities. Respiratory: No shortness of breath or cough. GI: No nausea, vomiting, diarrhea, or abdominal pain. : No gross hematuria, dysuria. Neuro: No focal weakness or sensory loss. Eyes: No visual complaints. ENT: No dysphagia. Musculoskeletal: Aside from left hip pain status post left hip arthroplasty, no complaints. Skin: No rashes, lesions. Psych: No depression or anxiety. PHYSICAL EXAM: Vital Signs: Temperature 98.2, heart rate 66, respiratory rate 20, oxygen saturation 98% on room air, blood pressure 127/74. General: Ms. Rossi is lying in bed watching TV, does not appear to be in any acute distress. Neurological: She is alert and oriented x3. Moves all extremities equally. There is no facial asymmetry or focal weakness. HEENT: Head is atraumatic, normocephalic. Eyes: EOMs intact. Sclerae anicteric, not pale. Oral mucosa appears to be dry. No oropharyngeal erythema. Neck: Supple. Lungs: Clear to auscultation bilaterally. No wheezes, rales, or rhonchi. Cardiac: Heart sounds S1, S2. Regular rate and rhythm. No murmurs, rubs, or gallops. She is tachycardic. Abdomen is soft, round, nontender. Bowel sounds present x4 quadrants. Extremities: +2 pulses throughout. Skin is intact. Dressing on the left hip is clean, dry, and intact. LABORATORY DATA: White blood cell 8.9, hemoglobin 10.7, hematocrit 31, platelet count 237. Sodium 136, potassium 3.6, chloride 102, carbon dioxide 28 , anion gap is 6, BUN 12, creatinine 0.78, GFR 77.3, glucose 88, magnesium 1.6. Troponin 0. IMPRESSION AND PLAN: Ms. Rossi is a 53-year-old female patient with significant medical history of deep venous thrombosis, gastroesophageal reflux disease, anemia, depression, anxiety, and gastric bypass. The patient presented to the hospital for planned total left hip arthroplasty. Hospitalist medical consultation called in for syncopal episode the patient experienced today, seems to have recovered from the episode without further complaint. Our recommendations are as follows: 1. Status post left hip arthroplasty. Management will be by Orthopedics. 2. Vasovagal episode. The patient will be monitored with telemetry for at least 24 hours. Troponin, EKG, NS bolus, and Fingerstick Blood Glucose initiated at occurrence. Orthostatic vital signs ordered post interventions. 3. Gastroesophageal reflux disease. Continue pantoprazole 40 mg daily. 4. Anemia. We will monitor CBC daily. 5. Depression/anxiety. Prozac 40 mg p.o. daily. 6. Hypomagnesemia. Manage with magnesium replacement IV. 7. DVT prophylaxis: Manage per Ortho. 8. Code status: The patient is a full code. TIME SPENT: Approximately 45 minutes was spent on this consultation, more than half that time was spent with the patient at bedside reviewing events leading to the syncopal episode, performing physical examination, and reviewing my plan of care. Thank you for allowing us to participate in the care of this patient. We will follow during this admission. AASHISH ANNE, MELISA [id number]/[facility] #: [id number] HOWARD
[2019-08-12] MEDS: Acetaminophen TAB* 325 MG PO SCH ×2 (00:51→08:50)
[2019-08-12] MEDS: HYDROcodone/ACETAMIN 5-325 MG* 1 TAB PO PRN ×2 (03:28→08:48)
[2019-08-12 06:05] LABS: ABS Eosinophils 0.2 10^3/ul (0-0.6); ABS Lymphocytes 1.5 10^3/ul (1.0-4.8); ABS Monocytes 0.7 10^3/ul (0-0.8); ABS Neutrophils 4.1 10^3/ul (1.5-7.7); Eosinophil % 2.8 %; Hematocrit 31 % (35-47); Hemoglobin 10.6 g/dL (12.0-16.0); Mean Corpuscular HGB Conc 34 g/dL (31-36); Mean Corpuscular Hemoglobin 31 pg (27-31); Mean Corpuscular Volume 91 fL (80-97); Mean Platelet Volume 7.3 fL (7.4-10.4); Platelet Count 242 10^3/uL (150-450); Red Blood Count 3.44 10^6 /uL (3.70-4.87); Red Cell Distribution Width 14 % (10-15); White Blood Count 6.5 10^3/uL (3.5-10.8)
[2019-08-12] MEDS ORDERED: PTO: Linaclotide (NF) 290 MCG CAP PO SCH (06:30)
[2019-08-12] MEDS: Pantoprazole TAB * 40 MG TAB PO SCH (08:49)
[2019-08-12] MEDS: FLUoxetine CAP* 20 MG PO SCH (08:49)
[2019-08-12] MEDS: Docusate CAP* 100 MG PO SCH (08:49)
[2019-08-12] MEDS: Magnesium Hydroxide LIQ* 30 ML UDC PO SCH (08:50)
[2019-08-12] MEDS: Vitamin THERAPEUTIC TAB PO SCH (08:50)
[2019-08-12] MEDS: Apixaban* 2.5 MG TAB PO SCH (08:50)
[2019-08-12] MEDS: Pregabalin 25 mg CAP (*) PO SCH (08:55)
[2019-08-12] MEDS: Cyclobenzaprine TAB* 10 MG PO PRN (09:48)
[2019-08-12 12:04] VITALS: BP 119/53
--- NOTE | 2019-08-12 12:05 | PN ---
Subjective Date of Service: 08/12/19 Interval History: Ms. Rossi has not had another episode of syncope. She states that she was standing for dressing change and was having acute pain. She then developed dizziness and felt pre-syncopal; she collapsed and regained consciousness shortly after. Since this time, she has been up walking without dizziness or LH. She has had no hypotension, although her SBP was 96 at the time of her syncopal episode. She is feeling well, and has no complaints today. Objective Active Medications: Acetaminophen (Tylenol Tab*) 975 mg PO Q8H [facility] Last Admin: 08/12/19 08:50 Dose: Not Given Hydrocodone Bitart/Acetaminophen ([place]coe 5-325 Tab*) 1 tab PO Q4H PRN PRN Reason: PAIN - MODERATE Hydrocodone Bitart/Acetaminophen (B[place]coe 5-325 Tab*) 2 tab PO Q4H PRN PRN Reason: PAIN - MODERATE Last Admin: 08/12/19 08:48 Dose: 2 tab Hydrocodone Bitart/Acetaminophen ([place]coe 10/325 (Nf)) 1 tab PO Q4H PRN PRN Reason: PAIN - SEVERE Apixaban (Eliquis*) 2.5 mg PO BID [facility] Last Admin: 08/12/19 08:50 Dose: 2.5 mg Bisacodyl (Dulcolax Supp*) 10 mg TN DAILY PRN PRN Reason: CONSTIPATION Cyclobenzaprine HCl (Flexeril Tab*) 10 mg PO Q6H PRN PRN Reason: SPASMS Last Admin: 08/12/19 09:48 Dose: 10 mg Diphenhydramine HCl (Benadryl Iv*) 25 mg IV Q6H PRN PRN Reason: PRURITIS Diphenhydramine HCl (Benadryl Po*) 25 mg PO Q6H PRN PRN Reason: PRURITIS Docusate Sodium (Colace Cap*) 100 mg PO BID [facility] Last Admin: 08/12/19 08:49 Dose: 100 mg Fluoxetine HCl (Prozac Cap*) 40 mg PO QAM [facility] Last Admin: 08/12/19 08:49 Dose: 40 mg Lactated Ringer's (Lactated Ringers 1000 Ml Bag*) 1,000 mls @ 100 mls/hr IV PER RATE [facility] Last Admin: 08/10/19 21:23 Dose: 100 mls/hr Lactulose (Lactulose*) 30 ml PO BID PRN PRN Reason: CONSTIPATION Linaclotide (Linzess (Nf)) 290 mcg PO QAM@0600 [facility] Last Admin: 08/12/19 06:07 Dose: 290 mcg Magnesium Hydroxide (Milk Of Magnesia Liq*) 30 ml PO BID [facility] Last Admin: 08/12/19 08:50 Dose: Not Given Magnesium Hydroxide (Milk Of Magnesia Liq*) 30 ml PO Q6H PRN PRN Reason: CONSTIPATION Morphine Sulfate (Morphine Inj (Syringe))*) 2 mg IV Q4H PRN PRN Reason: Pain - Unrelieved Last Admin: 08/10/19 21:21 Dose: 2 mg Multivitamins (Theragran Tab*) 1 tab PO DAILY [facility] Last Admin: 08/12/19 08:50 Dose: 1 tab Ondansetron HCl (Zofran Inj*) 4 mg IV Q6H PRN PRN Reason: NAUSEA Ondansetron HCl (Zofran Odt Tab*) 4 mg PO Q6H PRN PRN Reason: NAUSEA Pantoprazole Sodium (Protonix Tab*) 40 mg PO QAM [facility] Last Admin: 08/12/19 08:49 Dose: 40 mg Polyethylene Glycol/Electrolytes (Miralax (17 Gm Dose Surya)) 17 gm PO DAILY PRN PRN Reason: Constipation Last Admin: 08/12/19 10:37 Dose: 17 gm Pregabalin (Lyrica 25 Mg Cap (*)) 75 mg PO BID [facility] Last Admin: 08/12/19 08:55 Dose: 75 mg Tramadol HCl (Ultram*) 50 mg PO Q6H PRN PRN Reason: PAIN - MODERATE Trazodone HCl (Desyrel Tab*) 25 mg PO BEDTIME PRN PRN Reason: insomnia Vital Signs: Temp Pulse Resp BP Pulse Ox 99.4 F 72 16 119/53 100 08/12/19 12:02 08/12/19 12:02 08/12/19 12:36 08/12/19 12:02 08/12/19 12:02 Oxygen Devices in Use Now: None Appearance: Ms. Rossi is an obese, middle-aged white woman who is sitting up in bed; she appears well and in no acute distress. Eyes: No Scleral Icterus, PERRLA Ears/Nose/Mouth/Throat: NL Teeth, Lips, Gums, Clear Oropharnyx, Mucous Membranes Moist Neck: NL Appearance and Movements; NL JVP, Trachea Midline, No Thyroid Enlargement, Masses Respiratory: Symmetrical Chest Expansion and Respiratory Effort, Clear to Auscultation Cardiovascular: NL Sounds; No Murmurs; No JVD, RRR, No Edema Abdominal: NL Sounds; No Tenderness; No Distention, No Hepatosplenomegaly Extremities: No Edema, No Clubbing, Cyanosis, - - CDI dressing in place to L hip ; moves all extremities; sensation intact Neurological: Alert and Oriented x 3 Result Diagrams: 08/12/19 05:45 08/11/19 10:12 Assess/Plan/Problems-Billing Assessment: 53 yof PMHx GERD, anemia who presents for L ANN and experienced a syncopal event while standing for dressing changes. - Patient Problems (1) Status post left hip replacement Comment: -management per primary team -PT/OT -pain management, bowel regimen (2) Syncope Comment: -pt reports standing for dressing change, experience pain, then prodrome of dizziness, followed by syncopal episode -1L NS bolus administered at time of event -SBP during event was 100, although baseline appears to be 100-110's -BG 90's at time of event -no recurrence of events -tele reveals NSR throughout stay -PE WNL without murmur, arrhythmia -orthostatic VS unrevealing -likely that this was vasovagal -patient cautioned to return for any symptoms of dizziness, lightheadedness, loss of consciousness (3) GERD (gastroesophageal reflux disease) Comment: -continue pantoprazole (4) Anemia Comment: -not on any home rx -monitor CBC intermittently (5) Depression with anxiety Comment: -continue fluoxetine (6) DVT prophylaxis Comment: -apixaban per primary team (7) Full code status Status and Disposition: Inpatient. Discharge per primary table; medically stable for discharge.
--- NOTE | 2019-08-12 12:45 | PN ---
Progress Note - Progress Note Date of Service: 08/12/19 SOAP: Subjective: Pt seen and examined at bedside. Minimal complaint of pain. Feels much better today. No dizziness. Denies CP, SOB, F/C. Vital Signs: Temp Pulse Resp BP Pulse Ox 99.4 F 72 16 119/53 100 08/12/19 12:02 08/12/19 12:02 08/12/19 12:36 08/12/19 12:02 08/12/19 12:02 Laboratory Last Values WBC 6.5 10^3/uL (3.5-10.8) 08/12/19 05:45 RBC 3.44 10^6 /uL (3.70-4.87) L 08/12/19 05:45 Hgb 10.6 g/dL (12.0-16.0) L 08/12/19 05:45 Hct 31 % (35-47) L 08/12/19 05:45 MCV 91 fL (80-97) 08/12/19 05:45 MCH 31 pg (27-31) 08/12/19 05:45 MCHC 34 g/dL (31-36) 08/12/19 05:45 RDW 14 % (10-15) 08/12/19 05:45 Plt Count 242 10^3/uL (150-450) 08/12/19 05:45 MPV 7.3 fL (7.4-10.4) L 08/12/19 05:45 Neut % (Auto) 62.8 % 08/12/19 05:45 Lymph % (Auto) 23.0 % 08/12/19 05:45 [place] % (Auto) 10.8 % 08/12/19 05:45 Eos % (Auto) 2.8 % 08/12/19 05:45 Baso % (Auto) 0.6 % 08/12/19 05:45 Absolute Neuts (auto) 4.1 10^3/ul (1.5-7.7) 08/12/19 05:45 Absolute Lymphs (auto) 1.5 10^3/ul (1.0-4.8) 08/12/19 05:45 Absolute Monos (auto) 0.7 10^3/ul (0-0.8) 08/12/19 05:45 Absolute Eos (auto) 0.2 10^3/ul (0-0.6) 08/12/19 05:45 Absolute Basos (auto) 0.0 10^3/ul (0-0.2) 08/12/19 05:45 Absolute Nucleated RBC 0.0 10^3/ul 08/12/19 05:45 Nucleated RBC % 0.0 08/12/19 05:45 Sodium 136 mmol/L (135-145) 08/11/19 10:12 Potassium 3.6 mmol/L (3.5-5.0) 08/11/19 10:12 Chloride 102 mmol/L (101-111) 08/11/19 10:12 Carbon Dioxide 28 mmol/L (22-32) 08/11/19 10:12 Anion Gap 6 mmol/L (2-11) 08/11/19 10:12 BUN 12 mg/dL (6-24) 08/11/19 10:12 Creatinine 0.78 mg/dL (0.51-0.95) 08/11/19 10:12 Est GFR ( Amer) 93.5 (>60) 08/11/19 10:12 Est GFR (Non-Af Amer) 77.3 (>60) 08/11/19 10:12 BUN/Creatinine Ratio 15.4 (8-20) 08/11/19 10:12 Glucose 88 mg/dL (70-100) 08/11/19 10:12 POC Glucose (mg/dL) 97 mg/dL (70-100) 08/11/19 09:52 Calcium 9.0 mg/dL (8.6-10.3) 08/11/19 10:12 Phosphorus 2.5 mg/dL (2.5-5.0) 08/11/19 10:12 Magnesium 1.9 mg/dL (1.9-2.7) 08/12/19 05:45 Troponin I 0.00 ng/mL (<0.03) 08/11/19 10:12 Blood Type O Positive 08/10/19 06:35 Antibody Screen Negative 08/10/19 06:35 Objective: A&O x3, NAD Dressing changed, Incision C/D/I, Calves soft and nontender, No edema, NVI distally Assessment: s/p Left ANN POD #2 Plan: OOB, PT/OT WBAT Pain control DVT prophylaxis - Eliquis D/C home today
--- NOTE | 2019-08-12 12:51 | DS ---
Orthopedic Discharge Summary - Discharge Summary Date of Admission:08/10/19 Date of Discharge: 08/12/19 Date of Surgery: 09/08/19 Attending Orthopedic Provider: Rina Girard MD Pre-operative Diagnosis: Severe left hip osteoarthritis Operative Procedure: Left total hip replacement Disposition of Patient:Home Home care vs Outpatient services: Home care Condition of Patient: Stable Pain medication RX at discharge: [place] 5/325mg DVT prophylaxis RX at discharge: Eliquis 2.5mg BID History: CHRISTIANO GOODWIN is a 53 year old F with years of increasingly severe Left hip pain. Patient has failed conservative management and has elected to undergo a Left total hip replacement Hospital Course: CHRISTIANO was admitted to [facility] on 08/10/19. Patient underwent a Left total hip replacement without complication followed by a brief recovery in PACU and transfer to the Short Stay Surgical Unit in stable condition. Our hospitalist service, physical therapy and occupational therapy also participated in this patients care. Post-op day 1: patient was alert and in no acute distress. Dressing was clean, dry and intact. Operative extremity dorsiflexion and plantarflexion intact, sensation intact to light touch distally , DP2+. The patient did have a vasovagal episode. The hospitalist team was consulted. Post-op day two: She was feeling much better dressing was changed, incision was clean, dry and intact. Patient was deemed to be medically and orthopedically stable for discharge. Physical therapy goals were met. She was discharged home on 08/12/19 in a stable condition. Home Medications Medication Instructions Recorded Confirmed Type traZODone TAB* [Desyrel TAB*] 50 mg PO BEDTIME PRN 09/26/15 08/10/19 History Fluoxetine HCl [Prozac] 40 mg PO QAM 04/01/17 08/10/19 History Cholecalciferol (Vitamin D3) 5,000 unit PO QAM 08/24/17 08/10/19 History [Vitamin D3] Cyanocobalamin INJ * [Vitamin B12 1,000 mcg IM MONTHLY 03/17/18 08/10/19 History INJ *] Omeprazole 40 mg PO QAM 06/15/18 08/10/19 History Multivitamin [Once Daily] 1 tab PO QAM 11/21/18 08/10/19 History Hydrocodone/Acetaminophen [[place] 1 tab PO Q8HR PRN MDD 3 11/28/18 08/10/19 History 10-325 Tablet] Linaclotide [Linzess] 290 mcg PO QAM 07/25/19 08/10/19 History Pregabalin [Lyrica] 75 mg PO BID 07/25/19 08/10/19 History Apixaban* [Eliquis*] 2.5 mg PO BID tab 08/12/19 Rx Docusate CAP* [Colace Cap*] 100 mg PO BID cap 08/12/19 Rx HYDROcodone/ACETAMIN 5-325 MG* 1 tab PO Q4H PRN tab 08/12/19 Rx [[place] 5-325 TAB*] HYDROcodone/ACETAMIN 5-325 MG* 2 tab PO Q4H PRN tab 08/12/19 Rx [[place] 5-325 TAB*] Discharge Instructions following Orthopedic Surgery: Activity: * Weight Bearing as tolerated * Continue physical therapy and occupational therapy exercises as shown * If you have elected to have home physical therapy, continue therapy exercises at home. If you have elected outpatient physical therapy, please start therapy as an outpatient right away. Hip replacements: Continue Hip Precautions- do not cross legs or bend greater than 90 degrees/squat Wound care: * OK to shower on post-op day 3, no bathing, swimming, or submerging wound. * Use gentle soap, pat dry. Cover with gauze, JENNIFER wrap or tape. * If you elected to have a visiting home nurse, they will perform wound checks. Call Orthopedic office for: * Increased drainage * Redness * Increased pain * Fever Go to ER with shortness of breath or chest pain. Diet: * Regular diet * Increase fluids and fiber to prevent constipation. * Continue to use stool softeners, call office if no bowel motion within 48 hours. Medications See Home Medication List in your packet for medications that you should take after discharge. DVT Prophylaxis: Eliquis Dosin.5 mg, 1 tab every 12 hours x 30 days Pain Control: [place]wood 5/325 mg 1 tab for moderate pain and 2 tabs for severe pain by mouth every 4 hours as needed. Maximum of 10 tabs per day. Hold for sedation, wean off as soon as pain allows Please note that [place] contains Tylenol (acetaminophen). Maximum daily dose of Tylenol is 4000 mg from all sources. Antibiotics are required prior to any dental work. FOLLOW UP: Follow up with Dr. Girard Within 10-14 days, call for appointment Please call our office with any questions or concerns ([phone])
== END 2019-08-12 12:30 | disposition home or self-care (01) | DRG 301 ==
LOC: OR 05:31 → SSU 09:52
PROVIDERS: ADMIT Orthopaedic Surgery Adult Reconstructive Orthopaedic Surgery; ATTEND Orthopaedic Surgery Adult Reconstructive Orthopaedic Surgery
PROC: 0SRB04A Replacement of Left Hip Joint with Ceramic on Polyethylene Synthetic Substitute, Uncemented, Open Approach (ICD-10-PCS; principal; 2019-08-10 07:30)
DX: M16.12 Unilateral primary osteoarthritis, left hip (principal); K58.9 Irritable bowel syndrome, unspecified; K21.9 Gastro-esophageal reflux disease without esophagitis; D64.9 Anemia, unspecified; R55 Syncope and collapse; E83.42 Hypomagnesemia; I95.9 Hypotension, unspecified; F41.8 Other specified anxiety disorders; G47.30 Sleep apnea, unspecified; Z88.0 Allergy status to penicillin; Z88.6 Allergy status to analgesic agent; Z86.718 Personal history of other venous thrombosis and embolism; Z98.84 Bariatric surgery status; Z88.5 Allergy status to narcotic agent; Z88.8 Allergy status to other drugs, medicaments and biological substances; Z88.1 Allergy status to other antibiotic agents; Z88.2 Allergy status to sulfonamides; Z79.899 Other long term (current) drug therapy
CPT/HCPCS: 36415; 72170; 80048; 83735; 84100; 84484; 85014; 85018; 85025; 85049; 86850; 86900; 86901; 88304; 88311; 93005; A9270-GY; C1713; C1776; J1170; J2250; J2270; J2704; J2795; J3010; J3475; J8540